=== PATIENT | male | born 1955 | race Caucasian/White ===

== ENCOUNTER → 2017-11-16 | Outpatient (CLI) | payer BC ==
[~2017-11-16] MED LIST: ALLOPURINOL 30300 M3 PO; ASPIRIN EC325 M1 PO; CRESTOR10 MG PO; EFFIENT10 MG PO; FIBER LAX625 MG PO; FISH OIL 1,0001 EAC5 PO; LO-DOSE ASPIRIN81 M1 PO; PRILOSEC 20 MG20 MG PO; VITAMINC500 PO
== END ==
LOC: M.CT 09:09
DX: I25.10 Atherosclerotic heart disease of native coronary artery without angina pectoris (principal); I70.0 Atherosclerosis of aorta; M47.816 Spondylosis without myelopathy or radiculopathy, lumbar region; K57.30 Diverticulosis of large intestine without perforation or abscess without bleeding; M25.78 Osteophyte, vertebrae